=== PATIENT | female | born 1970 | race African-American/Black ===

== ENCOUNTER 2025-03-05 23:47 | Inpatient (IN) | payer SELFPAY ==
[~2025-03-05] VITALS: Ht 177.8 cm; Wt 104.3 kg
[2025-03-06] VITALS (9 sets, daily range): BP systolic 139–155; BP diastolic 92–113; PULSE 86–110; RESP 16–22; TEMP 36.0288–36.8; O2SAT 94–100
[2025-03-06 00:37] LABS: BASOPHILS % 0.2 % (0.0-2.0); EOSINOPHILS % 2.0 % (0.0-5.0); HEMATOCRIT. 36.2 % (36.0-48.0); HEMOGLOBIN. 12.1 g/dL (12.0-16.0); LYMPHOCYTES % 27.9 % (20.0-50.0); MEAN PLATELET VOLUME 8.8 fl (7.4-10.4); MONOCYTES % 6.8 % (2.0-8.0); NEUTROPHILS % 63.1 % (40.0-76.0); PLATELET 312 x1000/uL (130-400); RED BLOOD CELL COUNT 3.93 mill/uL (4.2-5.4); RED CELL DISTRIBUTION WIDTH 12.5 % (11.6-14.6)
[2025-03-06 00:52] LABS: CREATININE 0.9 mg/dL (0.6-1.0)
[2025-03-06 00:53] LABS: ETHANOL BLOOD < 10 mg/dL (<10); UREA NITROGEN BLOOD 14 mg/dL (9-23)
[2025-03-06 00:54] LABS: ASPARTATE AMINOTRANSFERASE 58 IU/L (<34); BILIRUBIN DIRECT 0.1 mg/dL (<=3.0)
[2025-03-06 00:55] LABS: BILIRUBIN TOTAL 0.5 mg/dL (0.1-1.0); PROTEIN TOTAL 7.2 g/dL (6.0-8.3)
[2025-03-06 01:02] LABS: TROPONIN I HIGH SENSITIVITY 78 ng/L (3.0-34)
[2025-03-06] MEDS: ALBUTEROL (0.083%) 2.5MG/3ML NEB HHN ONE (01:19)
[2025-03-06] MEDS: POTASSIUM CHLORIDE 20MEQ/PACKET PO NR (01:45)
[2025-03-06] MEDS: ASPIRIN 325MG EC TABLET PO NR (01:45)
[2025-03-06] MEDS ORDERED: ACETAMINOPHEN 325MG TABLET PO PRN ×2 (02:00)
[2025-03-06] MEDS ORDERED: ONDANSETRON HCL 4MG/2ML INJ IV PRN (02:00)
[2025-03-06] MEDS ORDERED: AZITHROMYCIN 500MG/250ML 250 ML IV SCH (03:00)
[2025-03-06] MEDS: AZITHROMYCIN 500MG/250ML 250 ML IV SCH (03:40)
[2025-03-06 04:02] LABS: *AMPHETAMINES SCREEN URINE NEGATIVE (NEGATIVE); *BARBITURATES SCREEN URINE NEGATIVE (NEGATIVE); *BENZODIAZEPINES SCREEN URINE NEGATIVE (NEGATIVE); *COCAINE SCREEN URINE PRESUMPTIVE POSITIVE (NEGATIVE); METHADONE URINE SCREEN NEGATIVE (NEGATIVE)
[2025-03-06 04:03] LABS: CANNABINOID URINE SCREEN PRESUMPTIVE POSITIVE (NEGATIVE); ECSTASY MDMA SCREEN URINE NEGATIVE (NEGATIVE); OPIATES URINE SCREEN NEGATIVE (NEGATIVE); PHENCYCLIDINE URINE SCREEN NEGATIVE (NEGATIVE)
[2025-03-06] MEDS ORDERED: HYDRALAZINE 20MG/ML VIAL IV PRN (06:00)
[2025-03-06] MEDS: IPRATROPIUM/ALBUTEROL 0.5-3(2.5)MG/3ML NEB HHN SCH ×2 (09:19→15:08)
[2025-03-06] MEDS: ENOXAPARIN 30MG/0.3ML SYR SUBCUT SCH (09:21)
[2025-03-06 09:38] LABS: HEPATITIS C AB NON REACTIVE (Neg) (Negative)
[2025-03-06 09:51] LABS: TROPONIN I HIGH SENSITIVITY 210 ng/L (3.0-34)
[2025-03-06 19:54] LABS: TROPONIN I HIGH SENSITIVITY 149 ng/L (3.0-34)
[2025-03-06] MEDS: AMLODIPINE 5MG TABLET PO SCH (21:52)
[2025-03-07] VITALS (11 sets, daily range): BP systolic 110–160; BP diastolic 77–109; PULSE 71–99; RESP 16–20; TEMP 36.4–36.7; O2SAT 93–100
[2025-03-07 07:26] LABS: BASOPHILS % 0.6 % (0.0-2.0); EOSINOPHILS % 3.1 % (0.0-5.0); HEMATOCRIT. 38.5 % (36.0-48.0); HEMOGLOBIN. 12.8 g/dL (12.0-16.0); LYMPHOCYTES % 37.4 % (20.0-50.0); MEAN PLATELET VOLUME 9.1 fl (7.4-10.4); MONOCYTES % 11.2 % (2.0-8.0); NEUTROPHILS % 47.7 % (40.0-76.0); PLATELET 303 x1000/uL (130-400); RED BLOOD CELL COUNT 4.18 mill/uL (4.2-5.4); RED CELL DISTRIBUTION WIDTH 12.6 % (11.6-14.6)
[2025-03-07 07:44] LABS: CREATININE 0.6 mg/dL (0.6-1.0)
[2025-03-07 07:45] LABS: UREA NITROGEN BLOOD 6 mg/dL (9-23)
[2025-03-07 07:47] LABS: PHOSPHORUS 4.1 mg/dL (2.5-4.9)
[2025-03-07 08:23] LABS: TROPONIN I HIGH SENSITIVITY 129 ng/L (3.0-34)
[2025-03-07] MEDS: LOSARTAN 25 MG TABLET PO SCH (12:58)
[2025-03-07] MEDS: FUROSEMIDE 20MG TABLET PO SCH (12:58)
[2025-03-07] MEDS: SPIRONOLACTONE 12.5MG TABLET PO SCH (12:59)
[2025-03-07] MEDS: POTASSIUM CHLORIDE 20MEQ/PACKET PO NR (12:59)
[2025-03-07] MEDS: POTASSIUM CHLORIDE 20MEQ TABLET SR PO SCH (13:30)
[2025-03-07] MEDS: LOSARTAN 50 MG TABLET PO SCH (20:27)
[2025-03-08] VITALS (10 sets, daily range): BP systolic 119–147; BP diastolic 74–107; PULSE 76–103; RESP 16–20; TEMP 35.9–36.4; O2SAT 95–100
[2025-03-08] MEDS: AMLODIPINE 5MG TABLET PO SCH (08:23)
[2025-03-08] MEDS: AZITHROMYCIN 500 MG TABLET PO SCH (08:23)
[2025-03-08 11:32] LABS: BASOPHILS % 0.3 % (0.0-2.0); EOSINOPHILS % 2.5 % (0.0-5.0); HEMATOCRIT. 40.5 % (36.0-48.0); HEMOGLOBIN. 13.5 g/dL (12.0-16.0); LYMPHOCYTES % 30.2 % (20.0-50.0); MEAN PLATELET VOLUME 9.0 fl (7.4-10.4); MONOCYTES % 11.6 % (2.0-8.0); NEUTROPHILS % 55.4 % (40.0-76.0); PLATELET 373 x1000/uL (130-400); RED BLOOD CELL COUNT 4.42 mill/uL (4.2-5.4); RED CELL DISTRIBUTION WIDTH 12.4 % (11.6-14.6)
[2025-03-08 11:52] LABS: CREATININE 0.7 mg/dL (0.6-1.0); UREA NITROGEN BLOOD 10 mg/dL (9-23)
[2025-03-08] MEDS ORDERED: ASPIRIN 325MG TABLET ONE (13:10)
[2025-03-08] MEDS: ASPIRIN 81MG EC TABLET PO ONE ×2 (13:38→13:43)
[2025-03-08] MEDS: ASPIRIN 81MG EC TABLET PO SCH (13:40)
[2025-03-08] MEDS ORDERED: ASPIRIN 325MG EC TABLET PO ONE (13:43)
[2025-03-08] MEDS ORDERED: LOSA50TA41 PO (16:24)
[2025-03-08] MEDS ORDERED: AMLO5TAB88 PO (16:24)
[2025-03-08] MEDS ORDERED: ASPI-1406 PO (16:24)
[2025-03-08] MEDS ORDERED: FURO20TA4 PO (16:24)
[2025-03-08] MEDS ORDERED: POTA-204 PO (16:24)
== END 2025-03-08 17:40 | disposition home or self-care (01) | DRG 199 ==
LOC: ER 23:47 → 5WST 03-06 01:32 → EDBEDREQ 03-06 01:58 → EDBEDREQDT 03-06 01:58 → EDBEDREQTM 03-06 01:58 → ENRESERV 03-06 02:02 → 5WST 03-06 02:37
PROVIDERS: ADMIT Student in an Organized Health Care Education/Training Program; ATTEND Student in an Organized Health Care Education/Training Program
DX: I16.1 Hypertensive emergency (principal); I21.A1 Myocardial infarction type 2; I50.21 Acute systolic (congestive) heart failure; J18.9 Pneumonia, unspecified organism; I11.0 Hypertensive heart disease with heart failure; I34.0 Nonrheumatic mitral (valve) insufficiency; Z20.822 Contact with and (suspected) exposure to COVID-19; J44.0 Chronic obstructive pulmonary disease with (acute) lower respiratory infection; I10 Essential (primary) hypertension; E66.9 Obesity, unspecified; F14.10 Cocaine abuse, uncomplicated; Z68.33 Body mass index [BMI] 33.0-33.9, adult; Z79.899 Other long term (current) drug therapy
CPT/HCPCS: 36415; 71045; 80048; 80076; 80305; 80320; 83735; 83880; 84100; 84443; 84484; 85025; 85379; 86705; 87340; 87426; 93005; 93306; 93970; 94070; 94640; 99285; A4606; J0456; J1650; G0480